=== PATIENT | male | born 1960 | race Caucasian/White ===

== ENCOUNTER 2023-01-17 10:47 | Emergency (ER) | payer MEDICAID, MEDICARE ==
[2023-01-17] MEDS ORDERED: cefTRIAXone 1 GM Vial IVPUSH STA (11:07)
[2023-01-17] MEDS ORDERED: Morphine 4 MG/ML VIAL IVPUSH ONE (11:07)
[2023-01-17] MEDS ORDERED: Sodium Chloride 0.9% 10 ML Syringe FLUSH PRN (11:07)
[2023-01-17] MEDS ORDERED: Diphtheria,Pertussis(Acell),Tetanus Vaccine 0.5 ML Syringe IM ONE (11:08)
[2023-01-17] MEDS ORDERED: Bacitracin Oint 1 GM U/D Packet TOP ONE (11:32)
[2023-01-17] MEDS ORDERED: Lidocaine 1% with EPINEPHrine 1:100,000 50 ML MDV INFILT ONE (11:32)
[2023-01-17 12:01] VITALS: BP 127/72; PULSE 80
[2023-01-17] MEDS ORDERED: cefTRIAXone 1 GM Vial IM ONE (12:55)
[2023-01-17] MEDS ORDERED: Amoxicillin 500 MG Cap ONE (13:00)
[2023-01-17] MEDS ORDERED: Lidocaine 1% PF 2 ML SDV INJECT ONE (13:05)
== END 2023-01-17 13:14 | disposition home or self-care (01) ==
LOC: LB.ED 10:47
DX: S61.211A Laceration without foreign body of left index finger without damage to nail, initial encounter (principal); I25.10 Atherosclerotic heart disease of native coronary artery without angina pectoris; I25.2 Old myocardial infarction; J44.9 Chronic obstructive pulmonary disease, unspecified; E11.9 Type 2 diabetes mellitus without complications; F17.210 Nicotine dependence, cigarettes, uncomplicated; Z23 Encounter for immunization; Z79.899 Other long term (current) drug therapy; Z79.82 Long term (current) use of aspirin; Z79.02 Long term (current) use of antithrombotics/antiplatelets; W26.8XXA Contact with other sharp object(s), not elsewhere classified, initial encounter
CPT/HCPCS: 12004; 73140-F1; 90471; 90715; 96372; 99283; A9270-GY; J0696